=== PATIENT | male | born 1945 | race Caucasian/White ===

== ENCOUNTER 2023-04-28 10:26 | Day surgery (SDC) | payer MEDICARE ==
[2023-04-28] VITALS (18 sets, daily range): BP systolic 117–156; BP diastolic 62–88
[~2023-04-28] VITALS: Ht 180.3 cm; Wt 80.6 kg
[2023-04-28] MEDS ORDERED: MIDAZolam 1mg/ml 10ml vial IV ONE (10:50)
[2023-04-28] MEDS ORDERED: fentaNYL/PF 50MCG/1 ML 2ML syringe IV ONE (10:50)
[2023-04-28] MEDS ORDERED: normal saline 1000ml 1,000 ML IV SCH (10:50)
[2023-04-28] MEDS ORDERED: AMI200T PO (11:17)
[2023-04-28] MEDS ORDERED: APIX5TAB3 PO (11:17)
[2023-04-28] MEDS ORDERED: MULT-227 PO (11:20)
[2023-04-28] MEDS ORDERED: ASCO-139 PO (11:20)
[2023-04-28 11:23] LABS: BASOPHILS # (AUTO) 0.1 X10'3 (0-0.2); BASOPHILS % (AUTO) 0.8 % (0-1); EOSINOPHILS # (AUTO) 0.1 X10'3 (0-0.9); EOSINOPHILS % (AUTO) 1.2 % (0-6); HEMATOCRIT 42.3 % (42.0-52.0); HEMOGLOBIN 14.3 g/dl (14.0-17.9); LYMPHOCYTES # (AUTO) 1.4 X10'3 (1.1-4.8); LYMPHOCYTES % (AUTO) 20.7 % (21-51); MEAN CORPUSCULAR HEMOGLOBIN 33.2 PG (27.0-31.0); MEAN CORPUSCULAR HGB CONC 33.8 g/dL (33.0-36.5); MEAN CORPUSCULAR VOLUME 98.4 FL (78-98); MEAN PLATELET VOLUME 9.4 FL (7.4-10.4); MONOCYTES # (AUTO) 0.4 X10'3 (0-0.9); MONOCYTES % (AUTO) 5.7 % (2-12); NEUTROPHILS # (AUTO) 4.8 X10'3 (1.8-7.7); NEUTROPHILS % (AUTO) 71.6 % (42-75); PLATELET COUNT 233 X10'3 (140-440); RED CELL DISTRIBUTION WIDTH 15.8 % (11.5-14.5); WHITE BLOOD COUNT 6.7 X10'3 (4.5-11.0)
[2023-04-28 11:40] LABS: ALBUMIN 4.2 G/DL (3.4-5.0); ANION GAP 7 (8-16); BLOOD UREA NITROGEN 27 MG/DL (7-18); BUN/CREATININE RATIO 14.4 (10.0-20.0); CALCIUM 8.9 MG/DL (8.5-10.1); CHLORIDE 107 MMOL/L (99-107); CREATININE 1.88 MG/DL (0.60-1.10); GLUCOSE 107 MG/DL (70-104); MAGNESIUM 1.9 MG/DL (1.5-2.4); POTASSIUM 4.1 MMOL/L (3.5-5.1); SODIUM 139 MMOL/L (135-145); TOTAL CARBON DIOXIDE 25.1 MMOL/L (24-32); eGFR 35 ML/MIN
== END 2023-04-28 14:35 | disposition home or self-care (01) ==
LOC: SSTAY O 10:26
PROVIDERS: ATTEND Internal Medicine Cardiovascular Disease
DX: I48.3 Typical atrial flutter (principal); I10 Essential (primary) hypertension; F17.210 Nicotine dependence, cigarettes, uncomplicated; Z79.899 Other long term (current) drug therapy; Z79.01 Long term (current) use of anticoagulants; Z98.890 Other specified postprocedural states; Z82.61 Family history of arthritis; Z82.49 Family history of ischemic heart disease and other diseases of the circulatory system
CPT/HCPCS: 36415; 80048; 83735; 85025; 85610; 92960; 93005; J2250; J3010; J7030; A4620

== ENCOUNTER → 2023-09-25 | Day surgery (SDC) | payer MEDICARE ==
[~2023-09-25] VITALS: Ht 180.3 cm; Wt 82.1 kg
[~2023-09-25] MED LIST: AMI200T PO; AMIO200T27 PO; APIX5TAB3 PO; ASCO-139 PO; FAMO20TA8 PO; FLUT16SP26 BOTHNARES; MIDAZolam 1mg/ml 10ml vial IV ONE; MULT-227 PO; fentaNYL/PF 50MCG/1 ML 2ML syringe IV ONE; normal saline 1000ml 1,000 ML IV SCH
--- NOTE | 2023-09-25 12:43 | NUR ---
Patient discharged without cardioversion performed; in sinus rhythm. Pt seen by Dr Alcazar prior to discharge.
== END | disposition home or self-care (01) ==
LOC: SSTAY O 10:14
PROVIDERS: ATTEND Internal Medicine Cardiovascular Disease
DX: I48.4 Atypical atrial flutter (principal); I48.91 Unspecified atrial fibrillation; I10 Essential (primary) hypertension; I08.1 Rheumatic disorders of both mitral and tricuspid valves; F17.210 Nicotine dependence, cigarettes, uncomplicated; Z98.890 Other specified postprocedural states; Z79.01 Long term (current) use of anticoagulants; Z79.899 Other long term (current) drug therapy; Z53.8 Procedure and treatment not carried out for other reasons
CPT/HCPCS: 93005